=== PATIENT | male | born 1945 | race Two or more races ===

== ENCOUNTER 2022-04-19 06:25 | Day surgery (SDC) | payer OTHER | END 2022-04-19 12:00 | disposition home or self-care (01) | LOC: AMB-ENDOS 06:25 → CIR.AMB 13:00 | PROVIDERS: ATTEND Surgery | DX: D12.7 Benign neoplasm of rectosigmoid junction (principal); D12.2 Benign neoplasm of ascending colon; D12.4 Benign neoplasm of descending colon; D12.5 Benign neoplasm of sigmoid colon; K64.8 Other hemorrhoids; Z86.010 Personal history of colon polyps; Z20.822 Contact with and (suspected) exposure to COVID-19 ==

== ENCOUNTER 2022-05-22 11:15 | Inpatient (IN) | payer OTHER ==
[~2022-05-22] VITALS: Ht 180.3 cm; Wt 87.5 kg
[2022-05-22] MEDS ORDERED: LIPITOR20 MG PO (15:34)
[2022-05-22] MEDS ORDERED: TOPROL XL50 M1 PO (15:34)
[2022-05-22] MEDS ORDERED: CHILDREN'S ASPI81 MG PO (15:35)
[2022-05-29] MEDS ORDERED: LEVSIN/SL0.125 MG SL (15:19)
[2022-05-29] MEDS ORDERED: PEPCID20 MG PO (15:20)
== END 2022-05-29 17:07 | disposition home or self-care (01) | DRG 330 ==
LOC: O/R 05-24 06:24 → SURH 05-24 10:30 → SURG 05-24 14:58
PROVIDERS: ADMIT Surgery; ATTEND Surgery
PROC: 07BB4ZZ Excision of Mesenteric Lymphatic, Percutaneous Endoscopic Approach (ICD-10-PCS; 2022-05-24)
PROC: 0DTF4ZZ Resection of Right Large Intestine, Percutaneous Endoscopic Approach (ICD-10-PCS; principal; 2022-05-24 10:30)
DX: C18.0 Malignant neoplasm of cecum (principal); K56.7 Ileus, unspecified; K91.89 Other postprocedural complications and disorders of digestive system; K63.5 Polyp of colon; I12.9 Hypertensive chronic kidney disease with stage 1 through stage 4 chronic kidney disease, or unspecified chronic kidney disease; N18.2 Chronic kidney disease, stage 2 (mild)